=== PATIENT | female | born 1955 | race Caucasian/White ===

== ENCOUNTER 2023-08-13 08:11 | Outpatient (AMB) | payer MEDICARE, SELFPAY ==
--- NOTE | 2023-08-13 08:11 | A.OFFVIS_ITS ---
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 Pt states she did trip and fall on her shoulder approximately 4 months ago. Pt states her pain radiates to her elbow. She states her pain is worse when she moves certain ways. She denies any previous surgeries or injections in her left shoulder. She has tried Tylenol and anti- inflammatory medicines which gave her minimal relief. She reports mild weakness when lifting her left hand above shoulder height. Allergies No Known Allergies Allergy (Verified 08/13/23 08:21) Medication List - Last Reconciled 08/14/23 by Jean Marie Rice MD amlodipine mg PO atorvastatin 20 mg PO DAILY cholecalciferol (vitamin D3) (Vitamin D3) 50 mcg PO DAILY valsartan 320 mg PO DAILY Physical Exam Const Other: Well-nourished well-developed very friendly female awake alert and oriented x3 in no acute distress Extrem Other: Bilateral upper extremity examination shows good capillary refill, no skin lesions noted, normal sensation light touch Left shoulder examination shows slightly decreased range of motion when compared to her right shoulder, 4+ out of 5 strength with supraspinatus testing, positive impingement signs, no instability Office Procedures Joint Injection/Drain Joint Injection/Drain Primary Site: left shoulder Prep: site was prepped using aseptic technique Injected: 40 mg of, DepoMedrol and 1% plain lidocaine Procedure: The patient tolerated the procedure well Coding 48601 - Large joint Procedure code (CPT) selection complete Results Reviewed Results Reviewed: X-rays of the patient's left shoulder show severe acromioclavicular joint narrowing, a type 2 acromion, no acute bony abnormalities Assessment & Plan Assessment & Plan (1) Left shoulder pain: Code(s): M25.512 - Pain in left shoulder Category: Medical Plan Ms. Easton presents with left shoulder pain due to impingement syndrome. I had a lengthy discussion with the patient regarding the treatment options. The risks and benefits of a left shoulder cortisone injection were discussed at length with the patient. The patient wished to proceed. She tolerated the injection well. She will continue with her home stretching program to prevent stiffness. She will contact me prior to her follow-up appointment in 3 months should any questions or concerns arise. I spent 20 minutes in reviewing the patient's records and imaging studies, seeing the patient and documenting in the medical record. Orders: Orders XR shoulder LT min 2V 08/13/23 M25.512 - Pain in left shoulder AMB Joint Injection/Aspiration 08/13/23 M25.512 - Pain in left shoulder Coding Level of Care Code New Pt Level 3 (68593) Diagnoses Left shoulder pain M25.512 CPT Codes Coding - 41788 Large joint: 59948 - Large joint ([id number])
== END 2023-08-13 08:43 | disposition home or self-care (01) ==
PROVIDERS: Visit Provider Orthopaedic Surgery
DX: M75.42 Impingement syndrome of left shoulder (principal)
CPT/HCPCS: 20610; 99203

== ENCOUNTER 2023-08-13 09:28 | Outpatient (REF) | payer MEDICARE, SELFPAY ==
--- NOTE | ~2023-08-13 | XR_ITS ---
EXAMINATION: XR SHOULDER, LEFT CLINICAL INFORMATION: Left shoulder pain COMPARISON: None available. TECHNIQUE: Two views of the left shoulder. FINDINGS: The bones and soft tissues are normal. No fracture. Glenohumeral and acromioclavicular alignment is anatomic with normal joint space. No abnormal soft tissue calcifications. XR/XR shoulder LT min 2V IMPRESSION: Normal left shoulder.
== END 2023-08-13 09:29 | disposition home or self-care (01) ==
LOC: HO.HOSX 09:28
PROVIDERS: Visit Provider Orthopaedic Surgery
DX: M75.42 Impingement syndrome of left shoulder (principal)
CPT/HCPCS: 20610; 73030; 99202; J1010

== ENCOUNTER 2024-04-28 07:42 | Outpatient (AMB) | payer MEDICARE, SELFPAY ==
--- NOTE | 2024-04-28 07:45 | MHC.OFFVIS ---
Intake Visit Reasons: Left shoulder pain and weakness Intake Note: Marianela is a 68 year old female who presents with complaints of progressively worsening left shoulder pain and weakness. She has undergone 2 right shoulder surgeries in the past. She reports minimal discomfort in her right shoulder. The patient fell onto her left shoulder approximately 1 year ago. Since that time she has had difficulty lifting her left hand above shoulder height. She did have a cortisone injection given into her left shoulder at her last visit which gave her minimal relief. She has tried physical therapy exercises which aggravated her pain. She has failed the last 6 weeks of conservative treatment which has included a home exercise program, Tylenol and ibuprofen. Allergies No Known Allergies Allergy (Verified 04/28/24 07:49) Medication List - Last Reconciled 04/28/24 by Jean Marie Rice MD amlodipine mg PO atorvastatin 20 mg PO DAILY cholecalciferol (vitamin D3) (Vitamin D3) 50 mcg PO DAILY valsartan 320 mg PO DAILY Physical Exam Const Other: Well-nourished well-developed very friendly female awake alert and oriented x3 in no acute distress Extrem Other: Bilateral upper extremity examination shows good capillary refill, no skin lesions noted, normal sensation light touch Left shoulder examination shows decreased range of motion when compared to her right shoulder, 4+ out of 5 strength with supraspinatus testing, positive impingement signs, no instability Results Reviewed Results Reviewed: X-rays of the patient's left shoulder taken previously show severe acromioclavicular joint narrowing, a type 2 acromion, no acute bony abnormalities Assessment & Plan Assessment & Plan (1) Rotator cuff insufficiency of left shoulder: Code(s): M25.312 - Other instability, left shoulder Category: Medical Plan Ms. Easton presents with progressively worsening left shoulder pain and weakness due to impingement syndrome and possible rotator cuff tearing. Thus, I will send the patient for an MRI of her left shoulder for further evaluation. I will see her back once the MRI is completed to discuss the findings and treatment options. I spent 21 minutes in reviewing the patient's records and imaging studies, seeing the patient and documenting in the medical record. Orders: Orders MR shoulder LT wo con Today M25.312 - Other instability, left shoulder Coding Level of Care Code Est Pt Level 3 (06600) Complex EM visit Add On G2211 Diagnoses Rotator cuff insufficiency of left shoulder M25.312
== END 2024-04-28 08:02 | disposition home or self-care (01) ==
LOC: HO.HOS 07:43
PROVIDERS: Visit Provider Orthopaedic Surgery
DX: M25.312 Other instability, left shoulder (principal)
CPT/HCPCS: 99213; G2211

== ENCOUNTER → 2024-04-28 07:42 | Outpatient (BNVA) | payer MEDICARE, SELFPAY | PROVIDERS: Visit Provider Orthopaedic Surgery | DX: M25.312 Other instability, left shoulder (principal) | CPT/HCPCS: 99212 ==

== ENCOUNTER 2024-05-09 10:28 | Outpatient (REF) | payer MEDICARE, SELFPAY ==
--- NOTE | ~2024-05-09 | MR_ITS ---
EXAMINATION: MRI LEFT SHOULDER WITHOUT CONTRAST HISTORY: M25.312 - Other instability, left shoulder COMPARISON: Correlation is made with plain films of the left shoulder dated 08/13/2023. TECHNIQUE: Coronal T1, T2, and fat suppressed T2, axial fat suppressed proton density, and sagittal T2 weighted MR images of the left shoulder were obtained. FINDINGS: Bone Marrow: Bone marrow signal intensity is normal. Joint effusion: There is no glenohumeral joint effusion. Glenohumeral joint: The glenohumeral joint is maintained. AC joint: There is mild osteoarthritis of the AC joint with cartilage loss and osteophyte formation. Supraspinatus muscle/tendon: There is diffuse moderate irregularity and fraying of the bursal surface of the supraspinatus tendon. An obliquely oriented focus of increased T2 signal intensity is noted extending through the full-thickness of the tendon, consistent with a full-thickness tear. There is a large amount of fluid in the subdeltoid/subacromial bursa. There is no significant tendon retraction. There is no significant muscle atrophy. Infraspinatus muscle/tendon: The infraspinatus tendon is intact. Normal muscle bulk. Teres minor muscle/tendon: The teres minor tendon is intact. Normal muscle bulk. Subscapularis muscle/tendon: The subscapularis tendon is intact. Normal muscle bulk. Biceps tendon: The biceps tendon is intact and normally located. Glenoid labrum: The glenoid labrum is grossly unremarkable in appearance, although evaluation is limited by lack of a joint effusion. Other findings: None MR/MR shoulder LT wo con IMPRESSION: 1. Mild osteoarthritis of the AC joint. 2. Moderate fraying of the bursal surface of the supraspinatus tendon with an associated obliquely oriented full-thickness tear. Large amount of fluid in the subdeltoid/subacromial bursa. Electronically signed by: Meño Hassan MD 05/11/2024 10:16 AM EDT
== END 2024-05-09 10:29 | disposition home or self-care (01) ==
LOC: HO.MRI 10:28
PROVIDERS: PCP Internal Medicine; Visit Provider Orthopaedic Surgery
DX: M25.312 Other instability, left shoulder (principal); M19.012 Primary osteoarthritis, left shoulder
CPT/HCPCS: 73221

== ENCOUNTER → 2024-05-09 10:37 | Outpatient (BNV) | payer MEDICARE, SELFPAY | PROVIDERS: PCP Internal Medicine; Visit Provider Radiology Diagnostic Radiology | DX: M75.122 Complete rotator cuff tear or rupture of left shoulder, not specified as traumatic (principal) | CPT/HCPCS: 73221 ==

== ENCOUNTER 2024-05-19 14:48 | Outpatient (AMB) | payer MEDICARE, SELFPAY ==
--- NOTE | 2024-05-19 14:53 | MHC.OFFVIS ---
Intake Visit Reasons: Left shoulder pain and weakness Intake Note: Marianela is a 68 year old female who presents with complaints of progressively worsening left shoulder pain and weakness. She has undergone 2 right shoulder surgeries in the past. She reports minimal discomfort in her right shoulder. The patient fell onto her left shoulder approximately 1 year ago. Since that time she has had difficulty lifting her left hand above shoulder height. She did have a cortisone injection given into her left shoulder at her last visit which gave her minimal relief. She has tried physical therapy exercises which aggravated her pain. She has failed the last 6 weeks of conservative treatment which has included a home exercise program, Tylenol and ibuprofen. Allergies No Known Allergies Allergy (Verified 05/19/24 14:54) Medication List - Last Reconciled 05/19/24 by Jean Marie Rice MD amlodipine mg PO atorvastatin 20 mg PO DAILY cholecalciferol (vitamin D3) (Vitamin D3) 50 mcg PO DAILY valsartan 320 mg PO DAILY Physical Exam Const Other: Well-nourished well-developed very friendly female awake alert and oriented x3 in no acute distress Extrem Other: Bilateral upper extremity examination shows good capillary refill, no skin lesions noted, normal sensation light touch Left shoulder examination shows slightly decreased range of motion when compared to her right shoulder, 4/5 strength with supraspinatus testing, positive impingement signs, tenderness over her acromioclavicular joint, no instability Results Reviewed Results Reviewed: MRI of the patient's left shoulder show severe acromioclavicular joint narrowing, a type 2 acromion, a full-thickness supraspinatus tendon tear Assessment & Plan Assessment & Plan (1) Rotator cuff insufficiency of left shoulder: Code(s): M25.312 - Other instability, left shoulder Category: Medical Plan Ms. Easton presents with progressively worsening left shoulder pain and weakness due to impingement syndrome, acromioclavicular joint arthritis and a full-thickness rotator cuff tear. I had a lengthy discussion with the patient regarding the treatment options. At this point she has failed continued non operative treatments. The risks and benefits of left shoulder surgery were discussed at length with the patient. The patient wishes to proceed with surgery. Surgery will involve left shoulder arthroscopic distal clavicle excision, acromioplasty and rotator cuff repair. The patient will be scheduled for next available date. She will follow up as instructed. Feel free to call me at any time should questions regarding her orthopedic management arise. I spent 22 minutes in reviewing the patient's records and imaging studies, seeing the patient and documenting in the medical record. Coding Level of Care Code Est Pt Level 3 (47325) Complex EM visit Add On G2211 Diagnoses Rotator cuff insufficiency of left shoulder M25.312
--- OUTSIDE RECORDS SUMMARY | 2024-05-19 17:54 | XMS_ITS | Data Portability ---
Author Organization [facility] Address [address] [address] Assessment Encounter Date Assessment Date Assessment LastModified by Organization Details LastModified Time 08/03/2021 08/03/2021 Marianela Easton is a 66 year old woman with low back pain radiating into the left lower extremity. On exam ,she has pain on flexion. MRI Lumbar spine shows Mild multilevel degenerative changes are seen with mild to moderate canal stenosis at L3-4. At L3-L4: There is diffuse disc bulging, posterior ligamentous thickening, and facet spurring resulting in mild to moderate canal stenosis and crowding of the bilateral descending L4 nerve roots in the subarticular recesses. There is mild bilateral neural foraminal stenosis. . Trial of Lumbar epidural steroid injections under fluoroscopic guidance was recommended. The risks and benefits of the procedure?? were discussed in detail. She wishes to proceed. Her current pain level is low. She will call for an appointment if her pain worsens. She needs a concrete mixing truck driver on the day of the procedure. [email or web address] Not available 08/04/2021 09:30:20 Plan of Treatment Reminders Order Date Submit Date Provider Last Modified By Organization Details Last Modified Time Details Appointments None record ed. Lab None record ed. Referral None record ed. Procedures None record ed. Surgeries None record ed. Imaging None record ed. Medication Orders None record ed. Patient TargetsNo targets recorded. Patient Instructions Encounter Date Encounter Id Patient Instructions Last Modified By Organization Details Last Modified Time 08/03/2021 [id number] She was advised against bed rest lasting longer than four days and to continue activities as tolerated. [email or web address] Not available 08/04/2021 09:30:32 Reason for Referral None Reported. Problems Name Problem SNOMED Code Status Onset Date Resolution Date Notes Provider Name and Address Organization Details Recorded Time Lumbar radiculopathy 237711380 Active uLli elise MD [address] [facility] [address], [place], [address], [place] [facility] 2 16:04:05 Degeneration of lumbar intervertebral disc 20637642 Active Luli elise MD [address] [facility] , [address], [place], [address], [place] [facility] 2 16:04:20 Problem Notes None recorded. Procedures Surgical History Date Name Laterality Status Provider Name and Address Organization Details Recorded Time section completed Luli Adamson MD [address] [facility] , [address], [place], [address], [place] [facility] 08/03/2021 14:47:46 Appendectomy completed Luli Adamson MD [address] [facility] [address], [place], [address], [place] [facility] 08/03/2021 14:47:37 Imaging Results None recorded. Procedure Notes None recorded. Medical Equipment None Reported. Allergies No known drug allergies Medications Name Sig Start Date Stop Date Status Note LastModified by Organization Details LastModified Time prednison e 10 mg tablet TAKE 2 TABS BY MOUTH DAILY X 4 DAYS, 1 TAB X 4 DAYS, THEN 1/2 TAB X 4 DAYS 08/03 completed Not Available Not Available Not Available azithromy jeffrey 250 mg tablet TAKE 2 TABLETS BY MOUTH TODAY, THEN TAKE 1 TABLET DAILY FOR 4 DAYS 08/03 completed Not Available Not Available Not Available benzonata te 200 mg capsule TAKE 1 CAPSULE BY MOUTH THREE TIMES A DAY NEEDED FOR COUGH 08/03 completed Not Available Not Available Not Available topiramat e 25 mg tablet TAKE 1 TABLET BY MOUTH EVERYDAY AT BEDTIME 08/03 completed Not Available Not Available Not Available amlodipin e 5 mg tablet TAKE 1 AND 1/2 TABLET BY MOUTH EVERY DAY active Treat HTN and anginia Not Available Not Available Not Available triamcino lone acetonide 0.1 % topical cream APPLY BY TOPICAL ROUTE EVERY DAY A THIN FILM TO THE AFFECTED SKIN AREAS 08/03 completed Not Available Not Available Not Available benzonata te 100 mg capsule TAKE 1 CAPSULE BY MOUTH THREE TIMES A DAY 08/03 completed Not Available Not Available Not Available valsartan 320 mg tablet TAKE 1 TABLET BY MOUTH EVERY DAY active Treats HEN and Heart Failure Not Available Not Available Not Available azelastin e 137 mcg (0.1 %) nasal spray SPRAY 2 SPRAYS INTO EACH NOSTRIL TWICE A DAY active Not Available Not Available No t Available estradiol 0.01% (0.1 mg/gram) vaginal cream USE 1 GRAM VAGINALL Y TWICE WEEKLY 08/03 completed Not Available Not Available Not Available levofloxa jeffrey 750 mg tablet TAKE 1 TABLET BY MOUTH EVERY DAY FOR 10 DAYS 08/03 completed Not Available Not Available Not Available methylpre dnisolone 4 mg tablets in a dose pack TAKE 6 TABLETS ON DAY 1 DIRECTED ON PACKAGE AND DECREASE BY 1 TAB EACH DAY FOR A TOTAL OF 6 DAYS 08/03 completed Not Available Not Available Not Available albuterol sulfate HFA 90 mcg/actua tion aerosol inhaler TAKE 2 PUFFS BY MOUTH EVERY 4 TO 6 HOURS NEEDED 08/03 completed Not Available Not Available Not Available cholecalc iferol (vitamin D3) 50 mcg (2,000 unit) capsule TAKE 1 CAPSULE BY MOUTH EVERY DAY active Not Available Not Available No t Available GaviLyte- G 236 gram-22.7 4 gram-6.74 gram-5.86 gram oral solution DRINK 240ML EVERY 15 MINUTES UNTIL GONE 08/03 completed Not Available Not Available Not Available Yuvafem 10 mcg vaginal tablet INSERT ONE TABLET VAGINALL Y AT BEDTIME FOR 14 DAYS, THEN TWICE WEEKLY 08/03 completed Not Available Not Available Not Available Vitals Date Recorded Body height Body mass index (BMI) Body weight Heart rate Oxygen saturation Oxygen saturation in Arterial blood by Pulse oximetry Pain severity - 0-10 verbal numeric rating [Score] - Reported Systolic blood pressure Diastolic blood pressure Provider Name and Address Organization Details Last Updated DateTime 2 167.64 cm 27.4 kg/m2 79968.7 g 60 /min 99 % 99 % 2 149 mm[Hg] 85 mm[Hg] Luli elise MD [facility] [employer] [facility] , [address], [facility] [place], [address], [facility] 2 14:41:30 Social History Question Answer Notes LastModified by Organization Details LastModified Time Tobacco Smoking Status Never Smoker Luli Adamson MD [address] [facility] , [address], [place], [address], [facility] 08/03/2021 14:46:55 What Is Your Level Of Alcohol Consumption? None Information not available 08/03/2021 Are You Blind Or Do You Have Difficulty Seeing? No Information not available 08/03/2021 Are You Currently Employed? Yes [employer] Information not available 08/03/2021 Are You Deaf Or Do You Have Serious Difficulty Hearing? 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 Information not available 08/03/2021 Do You Use Any Illicit Or Recreational Drugs? No Information not available 08/03/2021 Sex: Unknown Functional Status Question Answer Note LastModified by Organization D etails LastModified Time Do you have difficulty walking or climbing stairs? No Information not available 08/03/2021 Do you have difficulty doing errands alone? No Information not available 08/03/2021 Do you have difficulty dressing or bathing? No Information not available 08/03/2021 Mental Status Question Answer Note LastModified by Organization D etails LastModified Time Do you have difficulty concentrating, remembering or making decisions? No Information no t available 08/03/2021 Family History Nothing Reported. Medical History Condition Response Headache Y Arthritis Y Hypertension Y Gynecological HistoryNo gynecological history recorded. Obstetrics History GPAL:G 0 P 0 0 0 0 Past Encounters Encounter ID Performer Location Encounter Start Date Encounter Closed Date Diagnosis/Indication Diagnosis SNOMED-CT Code Diagnosis ICD10 Code Diagnosis Note [id number] Luli Adamson MD PAIN OFFICE [address] [place] [address] 08/03/2021 14:00:23 08/04/2021 09:31:41 Degeneration of lumbar intervertebral disc 84816897 M51.36 Lumbar radiculopathy 128 043593 M54.16 Health Concerns Section Related Observation LastModified by Organization Detai ls LastModified Time None Recorded Concern Status LastModified by Organization Details LastModified Time None Recorded Advance Directives Directive None Recorded Payers Encounter Date Sequence Insurance Name Policy Number Policy Szymanski Covered Member ID Szymanski Member ID Guarantor Name 08/03/[address] [place] [address] [id number] Marianela Easton [id number] Marianela Easton Notes Date Note Type Note Provider Name and Address Organization Details Recorded Time 08/03/2021 text/html Marianela Quiroz s ??is a 66 year old woman with complaints of low back pain radiating into left lower extremity. The pain started about 6 months . She states she is very active and and started to have severe pain radiating into left lower extremity with numbness. She describes the pain as a shooting pain , sharp in her left buttock region to the left leg with numbness, tingling and weakness in her left lower extremity. She has been doing a home exercise program for the past few weeks and feels her pain has improved. Current pain level is 1-2/10. Pain is aggravated by standing and walking . Pain is relieved a little with application of heat. She has no history of bladder or bowel incontinence.MRI Lumbar spine shows Mild multilevel degenerative changes are seen with mild to moderate canal stenosis at L3-4. At L3-L4: There is diffuse disc bulging, posterior ligamentous thickening, and facet spurring resulting in mild to moderate canal stenosis and crowding of the bilateral descending L4 nerve roots in the subarticular recesses. There is mild bilateral neural foraminal stenosis.She has trialed physical therapy with some pain benefit. She had two courses of medrol dose pack with some pain benefit.??Tylenol did not help. Luli Adamson MD [address] [place] [address] , [address], [place], [address], [place] [facility] 08/04/2021 12:34:27 OBGyn Episode No OBEpisode recorded.
== END 2024-05-19 15:12 | disposition home or self-care (01) ==
LOC: HO.HOS 14:48
PROVIDERS: PCP Internal Medicine; Visit Provider Orthopaedic Surgery
DX: M25.312 Other instability, left shoulder (principal)
CPT/HCPCS: 99214; G2211

== ENCOUNTER → 2024-05-19 14:48 | Outpatient (BNVA) | payer MEDICARE, SELFPAY | PROVIDERS: PCP Internal Medicine; Visit Provider Orthopaedic Surgery | DX: M25.312 Other instability, left shoulder (principal) | CPT/HCPCS: 99212 ==

== ENCOUNTER 2024-05-22 07:50 | Day surgery (SDC) | payer MEDICARE, SELFPAY ==
--- NOTE | 2024-05-21 12:05 | P.CONAN_ITS ---
Documented by User: Elen Hernandez NP 05/21/24 12:19 HPI - Anesthesia Eval Consult details Narrative: 68yo F for Left Shoulder Arthroscopy, distal clavicle excision, acromioplasty, rotator repair Medical hx not provided by surgeon office eval [facility] Active Problems Active Problems: All Active Problems Rotator cuff insufficiency of left shoulder (Acute) Left shoulder pain (Acute) Past Medical History Medical History Hypercholesteremia Hypertension Surgical History Surgical History Hx of shoulder surgery Hx of appendectomy Hx of colonoscopy Social History Social History Are you a primary manager intensive care to a significant other at home: No Do you presently have visiting nurse or other home services: No Patient Tobacco Use Status: Never used Tobacco Have you been hit, kicked, punched, or otherwise hurt by someone within the past year? If so, by whom?: No Are you DNR?: No Advance Directives: No Advance Directives Information Provided: Yes Poor oral hygiene: No Meds Allergies Allergy/AdvReac Type Severity Reaction Status Date / Time No Known Allergies Allergy Verified 05/22/24 08:16 Home Medications ?Medication ?Instructions ?Recorded ?Confirmed ?Last Taken ?Type amlodipine 5 mg tablet mg PO 08/13/23 05/19/24 05/22/24 History atorvastatin 20 mg tablet 20 mg PO DAILY 08/13/23 05/22/24 Unknown History cholecalciferol (vitamin D3) 50 50 mcg PO DAILY 08/13/23 05/22/24 Unknown History mcg (2,000 unit) capsule (Vitamin D3) valsartan 320 mg tablet 320 mg PO DAILY 08/13/23 05/22/24 Unknown History Assessment and Plan Assessment Anesthesia Assessment: Chart Reviewed Documented by User: Greta Collins MD 05/22/24 10:14 [facility] Past Medical History Medical History Hypercholesteremia Hypertension Family History Family history of problems with anesthesia: No Surgical History Surgical History Hx of shoulder surgery Hx of appendectomy Hx of colonoscopy History of Problems with Anesthesia: No Social History Social History Are you a primary manager intensive care to a significant other at home: No Do you presently have visiting nurse or other home services: No Patient Tobacco Use Status: Never used Tobacco Have you been hit, kicked, punched, or otherwise hurt by someone within the past year? If so, by whom?: No Are you DNR?: No Advance Directives: No Advance Directives Information Provided: Yes Poor oral hygiene: No Meds Allergies Allergy/AdvReac Type Severity Reaction Status Date / Time No Known Allergies Allergy Verified 05/22/24 08:16 Home Medications ?Medication ?Instructions ?Recorded ?Confirmed ?Last Taken ?Type amlodipine 5 mg tablet mg PO 08/13/23 05/19/24 05/22/24 History atorvastatin 20 mg tablet 20 mg PO DAILY 08/13/23 05/22/24 Unknown History cholecalciferol (vitamin D3) 50 50 mcg PO DAILY 08/13/23 05/22/24 Unknown History mcg (2,000 unit) capsule (Vitamin D3) valsartan 320 mg tablet 320 mg PO DAILY 08/13/23 05/22/24 Unknown History Exam Airway Mallampati Class: II TM Dist: >3cm Neck ROM: Full Heart: rrr Lungs: cta Assessment and Plan Assessment Anesthesia Assessment: Anesthesia Plan Discussed Final Anesthetic Review Family History of Problems with Anesthesia: No History of Problems with Anesthesia: No NPO: Yes ASA Class: II Final Preanesthetic Review: No Changes in Pt Med Stat, Meds/Allgs Chart Reviewed, Consent Obtained/Reviewed and Anes Risks/Benef Reviewed Patient Risk: Low Procedure Risk: Intermediate Anesthetic Plan Anesthetic Plan: GA, Regional Block and Agree w/ Assess. and Plan Disposition: Standard PACU
[2024-05-22] VITALS (8 sets, daily range): BP systolic 129–159; BP diastolic 67–84; PULSE 61–82; RESP 12–18; TEMP 36.1–36.7; O2SAT 95–100; BMI 26.3
[2024-05-22] MEDS: Lactated Ringers 1,000 ML 100 ML IVCONT (08:41)
[2024-05-22] MEDS: ceFAZolin Sodium/Dextrose,Iso 2 GM/50 ML PIGGYBACK IV (11:30)
[2024-05-22] MEDS: Acetaminophen 1,000 MG/100 ML PIGGYBACK 400 MG IV (12:00)
--- NOTE | 2024-05-22 13:34 | PM.OP ---
Brief Operative Note Date of Service: 05/22/24 Pre-op diagnosis: Left shoulder rotator cuff tear, left shoulder impingement syndrome, left shoulder acromioclavicular joint arthritis Post-op diagnosis: same Procedure: Left shoulder diagnostic arthroscopy with left shoulder arthroscopic distal clavicle excision, left shoulder arthroscopic acromioplasty, left shoulder mini-open rotator cuff repair Implants: One suture anchor ([employer]s [employer] Nephew Twinfix anchor with #2 Ultrabraid suture) Surgeon: Jean Marie Rice MD Anesthesia: GETA and regional Was an Senior Cytogenetic Technologist used for this Procedure?: No Estimated blood loss (mL): 15 Pathology: none sent Condition: stable Disposition: PACU
--- NOTE | 2024-05-22 13:36 | P.OP_ITS ---
Operative Note Operative Note Date of Service: 05/22/24 Narrative: After the patient was identified as Marianela Easton and her left shoulder was initialed by myself the patient was brought to the holding area where a left shoulder interscalene regional block was performed by the anesthesiologist in routine fashion. The patient was then brought to the operating room where general anesthesia was induced by the anesthesiologist in routine fashion. The patient was given 2 g of IV Ancef preoperatively for infection prophylaxis. Examination under anesthesia of the patient's left shoulder showed full passive range of motion of the patient's left shoulder when compared to the right. The patient was gently positioned in the beach chair position with all bony prominences well padded. The patient's left shoulder region and upper extremity were prepped and draped in sterile fashion. A formal time-out was completed. A #11 scalpel blade was used to make a posterior portal 2 cm inferior and 1 cm medial to the posterolateral corner of the acromion. Blunt trocar technique was used to enter the glenohumeral joint in routine fashion. An anterior portal was made just lateral to the coracoid process after proper positioning was confirmed using a spinal needle. Diagnostic arthroscopy showed minimal degenerative changes of the glenoid and humeral head articular surfaces. There was a full- thickness tear of the supraspinatus tendon. There was no evidence of injury to the biceps tendon or its insertion onto the glenoid. There was no inflammation of the anterior joint capsule. The arthroscope was then placed from the posterior portal into the subacromial space. A lateral portal was made 2 fingerbreadths lateral to the anterior lateral corner of the acromion. The ArthroCare Wand was used to ablate soft tissues along the undersurface of the acromion as well as to excise the coracoacromial ligament. There was a sharp spur along the undersurface of the acromion which was removed using the hooded bur. The arthroscope was then placed into the lateral portal and the acromioplasty was completed with the bur in the posterior portal using the posterior aspect of the acromion as a cutting block. The ArthroCare Wand was then brought in through the anterior portal and was used to ablate soft tissues along the acromioclavicular joint and distal clavicle. The posterior and superior ligamentous structures were left intact. A distal clavicle excision of 8 mm was performed using the hooded bur. Any remaining bursal tissue was removed using the arthroscopic shaver. The subacromial space was irrigated and then drained. All arthroscopic instruments were removed. Sterile gloves were changed and the shoulder was once again prepped with Betadine. A #15 scalpel blade was used to extend the lateral portal to the lateral edge of the acromion. The subacromial tissues were dissected using electrocautery down to the superficial deltoid fascia. The trocar split in the anterior raphe of the deltoid was then extended to the lateral edge of the acromion using elec trocautery and curved Peterson scissors. Any remaining bursal tissue was removed using curved Peterson scissors. Subacromial and subdeltoid adhesions were bluntly dissected. The undersurface of the acromion was palpated and it was smooth. A #2 Ethibond tag suture was placed into the supraspinatus tendon. The tendon was easily mobilized to its insertion point on the glenoid. The wound was irrigated with copious amounts of normal saline solution. One suture anchor was placed into the greater tuberosity in routine fashion. The rotator cuff repair was then performed using horizontal mattress sutures under minimal tension with the patient's elbow at their side. Following the repair the shoulder was taken through a full range of motion. The repair was stable. The wound was irrigated with copious amounts of normal saline solution. The superficial and deep deltoid fascia were closed with #1 Vicryl [id number] interrupted suture. The wound was once again irrigated. The subcutaneous tissues were closed with 2-0 Vicryl interrupted suture. The skin was closed with 3-0 Prolene subcuticular suture and Steri-Strips. The anterior and posterior portals were closed with 3-0 nylon interrupted suture. Dry sterile dressing was placed over all incisions. The patient's left upper extremity was placed into a sling. The patient was awoken and extubated in the operating room. The patient was transferred to the recovery room in stable condition.
[2024-05-22] MEDS: cefTRIAXone sodium 1 GM VIAL IVPUSH (13:45)
== END 2024-05-22 14:44 | disposition home or self-care (01) ==
PROVIDERS: PCP Internal Medicine; Visit Provider Orthopaedic Surgery
PROC: (CPT 29805; principal; 2024-05-22 10:50)
DX: M75.102 Unspecified rotator cuff tear or rupture of left shoulder, not specified as traumatic (principal); M75.42 Impingement syndrome of left shoulder; M19.012 Primary osteoarthritis, left shoulder; Z91.81 History of falling; M25.512 Pain in left shoulder; M25.312 Other instability, left shoulder; I10 Essential (primary) hypertension; E78.00 Pure hypercholesterolemia, unspecified; Z79.899 Other long term (current) drug therapy; Z98.890 Other specified postprocedural states
CPT/HCPCS: 23412; 29824; 29826; C1713; J0131; J0171; J0665; J0690; J0696; J1100; J2003; J2250; J2405; J2704; J2795; J3010

== ENCOUNTER → 2024-05-22 07:50 | Outpatient (BNV) | payer MEDICARE, SELFPAY | PROVIDERS: PCP Internal Medicine; Visit Provider Orthopaedic Surgery | DX: S46.012A Strain of muscle(s) and tendon(s) of the rotator cuff of left shoulder, initial encounter (principal); M75.42 Impingement syndrome of left shoulder; M19.012 Primary osteoarthritis, left shoulder | CPT/HCPCS: 23412; 29824 ==

== ENCOUNTER 2024-06-02 14:32 | Outpatient (AMB) | payer MEDICARE, SELFPAY ==
--- NOTE | 2024-06-02 14:39 | MHC.OFFVIS ---
Intake Visit Reasons: PO LT shoulder 05/22/24 Intake Note: Marianela is a 68 year old female who presents today for a post operative visit s/p LT shoulder , DOS 05/22/24 Patient reports she is getting better. She has been doing her at home exercises which help. Patient notices some pain with certain movements. Allergies No Known Allergies Allergy (Verified 06/02/24 14:51) HPI HPI PO LT shoulder 05/22/24 DR: Details: Ms. Easton this is a 68-year-old female who presents to the office today status post left shoulder diagnostic arthroscopy with a distal clavicle excision, acromioplasty and mini open rotator cuff repair that was performed on 05/22/[address] Rice. Patient reports some slight discomfort depending on motion. She has been doing her home exercises which are helping. She is concerned about attending formal physical therapy due to high co-pay. PFSH Medical History Hypercholesteremia Hypertension Surgical History Hx of shoulder surgery Hx of appendectomy Hx of colonoscopy Social History Are you a primary child care supervisor to a significant other at home: No Do you presently have visiting nurse or other home services: No Patient Tobacco Use Status: Never used Tobacco Review of Systems Const All systems reviewed & are unremarkable except as noted in HPI and below Physical Exam Const General: cooperative, healthy appearing and no acute distress Resp Effort & Inspection: normal respiratory effort and able to speak in complete sentences Cardio Rate: regular rate Peripheral pulses: Peripheral pulses 2+ throughout Skin Lesions: no lesions Rashes: no rashes Extrem Other: Right shoulder incision sites are clean dry and intact. No surrounding erythema or drainage. No signs of infection. Sutures intact. NVI. Assessment & Plan Assessment & Plan (1) Rotator cuff insufficiency of left shoulder: Code(s): M25.312 - Other instability, left shoulder Category: Medical Plan Ms. Jemma hurd is a 68-year-old female who presents to the office today status post left shoulder diagnostic arthroscopy with a distal clavicle excision, acromioplasty and mini open rotator cuff repair that was performed on 05/22/[address] Rice. Patient reports some slight discomfort depending on motion. She has been doing her home exercises which are helping. She is concerned about attending formal physical therapy due to high co-pay. Only office today, her sutures were removed and Steri-Strips were applied. She may shower and get the incision sites wet. Pat dry. No tub bath. In regards to physical therapy the patient is concerned about a high co-pay for each visit. Therefore, I was able to provide the patient with at home physical therapy exercises. Patient will follow up in [address] Rice, sooner if needed. Coding Level of Care Code Global (32290) Diagnoses Rotator cuff insufficiency of left shoulder M25.312
--- OUTSIDE RECORDS SUMMARY | 2024-06-02 17:23 | XMS_ITS | Data Portability ---
Author Organization [facility] Address [address] [facility],[address] [address] Assessment Encounter Date Assessment Date Assessment LastModified [...] if her pain worsens. She needs a bus driver on the day of the procedure. [...] By Organization Details Last Modified Time 08/03/2021 [id number] She was advised against bed rest lasting longer than four days and to continue activities as tolerated. [email or web address] Not available 08/04/2021 09:30:32 Reason for Referral None Reported. Problems Name Problem SNOMED Code Status Onset Date Resolution Date Notes Provider Name and Address Organization Details Recorded Time Lumbar radiculopathy 158246453 Active Luli elise MD [facility] [address], [place], [address], [place] [facility] 2 16:04:05 Degeneration of lumbar intervertebral disc 20900341 Active Luli elise MD [address] [facility] , [address], [place], [address], [place] [facility] 2 16:04:20 Problem Notes None recorded. Procedures Surgical History Date Name Laterality Status Provider Name and Address Organization Details Recorded Time section completed Luli Adamson MD [address] [facility] , [address], [place], [address], [place] [facility] 08/03/2021 14:47:46 Appendectomy completed Luli Adamson MD [address] [facility] [address], [place], [address], [place] [facility] 08/03/2021 14:47:37 [...] Updated DateTime 2 167.64 cm 27.4 kg/m2 30660.7 g 60 /min 99 % 99 % 2 149 mm[Hg] 85 mm[Hg] Luli elise MD [facility] , [address], [facility], [address], [facility] 2 14:41:30 Social History Question Answer Notes LastModified by Organization Details LastModified Time Tobacco Smoking Status Never Smoker Luli Adamson MD [address] [facility] , [address], [place], [address], [facility] 08/03/2021 14:46:55 What Is Your Level Of Alcohol Consumption? None Information not available 08/03/2021 Are You Blind Or Do You Have Difficulty Seeing? No Information not available 08/03/2021 Are You Currently Employed? Yes [employer] Information not available 08/03/2021 Are [...] SNOMED-CT Code Diagnosis ICD10 Code Diagnosis Note [id number] Luli Adamson MD PAIN OFFICE [address] [place] [address] 08/03/2021 14:00:23 08/04/2021 09:31:41 Degeneration of lumbar intervertebral disc 36246347 M51.36 Lumbar radiculopathy 128 168352 M54.16 Health Concerns Section Related Observation LastModified by Organization Detai ls LastModified Time None Recorded Concern Status LastModified by Organization Details LastModified Time None Recorded Advance Directives Directive None Recorded Payers Encounter Date Sequence Insurance Name Policy Number Policy Szymanski Covered Member ID Szymanski Member ID Guarantor Name 08/03/[address] [place] [address] [id number] Marianela Easton [id number] Marianela Easton Notes Date Note Type Note [...] benefit.??Tylenol did not help. Luli Adamson MD [address] [place] [address] , [address], [place], [address], [place] [facility] 08/04/2021 12:34:27 OBGyn Episode No OBEpisode recorded.
== END 2024-06-02 15:22 | disposition home or self-care (01) ==
LOC: HO.HOS 14:33
PROVIDERS: PCP Internal Medicine; Visit Provider Physician Assistant
DX: M25.312 Other instability, left shoulder (principal)
CPT/HCPCS: 99024

== ENCOUNTER → 2024-06-02 14:32 | Outpatient (BNVA) | payer MEDICARE, SELFPAY | PROVIDERS: PCP Internal Medicine; Visit Provider Physician Assistant | DX: M25.512 Pain in left shoulder (principal); Z47.89 Encounter for other orthopedic aftercare; Z98.890 Other specified postprocedural states | CPT/HCPCS: 99212 ==

== ENCOUNTER 2024-06-30 07:37 | Outpatient (AMB) | payer MEDICARE, SELFPAY ==
--- NOTE | 2024-06-30 07:39 | A.OFFVIS_ITS ---
Intake Visit Reasons: PO-LT shoulder 05/22/24 Intake Note: Marianela is a 68 year old female who presents today for post-operatively after undergoing a left shoulder arthroscopy on 05/22/24. At their last post-operative visit patient was given home exercises to work on. Patient reports that she is making improvements but still having some mild pain and soreness. She stopped taking narcotics because of constipation. She does take Tylenol which gives her mild relief. Allergies No Known Allergies Allergy (Verified 06/30/24 07:43) Medication List - Last Reconciled 06/30/24 by Jean Marie Rice MD amlodipine mg PO atorvastatin 20 mg PO DAILY cholecalciferol (vitamin D3) (Vitamin D3) 50 mcg PO DAILY oxycodone 10 mg (2 x 5 mg) PO Q4H PRN valsartan 320 mg PO DAILY PFSH Medical History Hypercholesteremia Hypertension Surgical History Hx of shoulder surgery Hx of appendectomy Hx of colonoscopy Social History Are you a primary physician assistant primary care to a significant other at home: No Do you presently have visiting nurse or other home services: No Patient Tobacco Use Status: Never used Tobacco Physical Exam Extrem Other: Left shoulder examination shows that the surgical incisions are well healed, no erythema, mild discomfort with passive range of motion, no instability Assessment & Plan Assessment & Plan (1) Left shoulder pain: Code(s): M25.512 - Pain in left shoulder Category: Medical Plan Ms. Easton continues to do well after undergoing left shoulder rotator cuff repair surgery on 05/22/2024. She will continue with her passive range of motion exercises only. She can begin active range of motion exercises once she is 8 weeks out from surgery. She will contact me prior to her follow-up appointment in 2-3 months should any questions or concerns arise. Feel free to call me at any time should questions regarding her orthopedic management arise. Coding Level of Care Code Global (96710) Diagnoses Left shoulder pain M25.512
--- OUTSIDE RECORDS SUMMARY | 2024-06-30 07:41 | XMS_ITS | Data Portability ---
Author Organization [facility] Address [address] [facility],[address] [address] Assessment Encounter Date Assessment Date Assessment LastModified [...] recommended. The risks and benefits of the procedure? ? ? were discussed in detail. She wishes to proceed. Her current pain level is low. She will call for an appointment if her pain worsens. She needs a cpr ambulance driver on the day of the procedure. [...] By Organization Details Last Modified Time 08/03/2021 [id number] She was advised against bed rest lasting longer than four days and to continue activities as tolerated. [email or web address] Not available 08/04/2021 09:30:32 Reason for Referral None Reported. Problems Name Problem SNOMED Code Status Onset Date Resolution Date Notes Provider Name and Address Organization Details Recorded Time Lumbar radiculopathy 092899442 Active Luli elise MD [address] [facility] , [address], [place], [address], [place] [facility] 16:04:05 Degeneration of lumbar intervertebral disc 24162498 Active Luli elise MD [address] [facility] , [address], [place], [address], [place] [facility] 16:04:20 Problem Notes None recorded. Procedures Surgical History Date Name Laterality Status Provider Name and Address Organization Details Recorded Time section completed Luli Adamson MD [address] [facility] , [address], [place], [address], [place] [facility] 08/03/2021 14:47:46 Appendectomy completed Luli Adamson MD [address] [facility] , [address], [place], [address], [place] [facility] 08/03/2021 14:47:37 [...] saturation in Arterial blood by Pulse oximetry Systolic blood pressure Diastolic blood pressure Provider Name and Address Organization Details Last Updated DateTime 2 167.64 cm 27.4 kg/m2 35113.7 g 60 /min 99 % 99 % 149 mm[Hg] 85 mm[Hg] Luli elise MD [facility] , [address], [facility] [place], [address], [facility] 2 14:41:30 Social History Question Answer Notes LastModified by Organizat ion Details LastModified Time Tobacco Smoking Status Never Smoker Thenu Manikantan, MD [address] , [address], [place], [address], [facility] 08/03/2021 14:46:55 Are You Blind Or Do You Have Difficulty Seeing? No Information not available 08/03/2021 Are You Deaf Or Do You Have Serious Difficulty Hearing? No Information not available 08/03/2021 What Is Your Relationship Status? Information not available 08/03/2021 Do You Have Difficulty Walking Or Climbing Stairs? No Information not available 08/03/2021 Sex: Unknown Functional Status Question Answer Note LastModified by Organization Details LastModified Time Do you use any illicit or recreational drugs? No Information not available 08/03/2021 What is your level of alcohol consumption? 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 Information not available 08/03/2021 Do you have [...] SNOMED-CT Code Diagnosis ICD10 Code Diagnosis Note [id number] Luli Adamson MD PAIN OFFICE [address] [place] [address] 08/03/2021 14:00:23 08/04/2021 09:31:41 Degeneration of lumbar intervertebral disc 32945190 M51.36 Lumbar radiculopathy 128 791003 M54.16 Health Concerns Section Related Observation LastModified by Organization Detai ls LastModified Time None Recorded Concern Status LastModified by Organization Details LastModified Time None Recorded Advance Directives Directive None Recorded Payers Encounter Date Sequence Insurance Name Policy Number Policy Szymanski Covered Member ID Szymanski Member ID Guarantor Name 08/03/2021 1 [facility] [id number] 23 Marianela Easton [id number] Marianela Easton Notes Date Note Type Note Provider Name and Address Organization Details Recorded Time 08/03/2021 text/html Marianela Quiroz s ? ? ?is a 66 year old woman with complaints [...] of medrol dose pack with some pain benefit.? ? ?Tylenol did not help. Luli Adamson MD [address] [place] [address] , [address], [place], [address], [place] [facility] 08/04/2021 12:34:27 OBGyn Episode No OBEpisode recorded.
== END 2024-06-30 08:09 | disposition home or self-care (01) ==
LOC: HO.HOS 07:38
PROVIDERS: PCP Internal Medicine; Visit Provider Orthopaedic Surgery
DX: M25.512 Pain in left shoulder (principal)
CPT/HCPCS: 99024

== ENCOUNTER → 2024-06-30 07:37 | Outpatient (BNVA) | payer MEDICARE, SELFPAY | PROVIDERS: PCP Internal Medicine; Visit Provider Orthopaedic Surgery | DX: M25.512 Pain in left shoulder (principal) | CPT/HCPCS: 99212 ==